=== PATIENT | female | born 1945 | race Caucasian/White ===

== ENCOUNTER 2020-07-14 13:00 | Outpatient (RCR) | payer MEDICARE, OTHER, SELFPAY ==
[2020-07-12 13:03] VITALS: BMI 25.7
[2020-07-12 13:08] VITALS: BMI 25.7
== END 2020-08-17 11:05 | disposition home or self-care (01) ==
LOC: ANHDMC 13:00
PROVIDERS: PCP Radiology Radiation Oncology; Visit Provider Internal Medicine Endocrinology, Diabetes & Metabolism
DX: E10.65 Type 1 diabetes mellitus with hyperglycemia (principal); Z71.3 Dietary counseling and surveillance; Z71.89 Other specified counseling
CPT/HCPCS: 97802; G0108